=== PATIENT | female | born 1990 | race Caucasian/White ===

== ENCOUNTER 2020-05-14 12:41 | Emergency (ER) | payer OTHER ==
--- NOTE | 2020-05-14 13:38 | ED ---
Recheck HPI - General Chief Complaint: Recheck/Abnormal Lab/Rx Stated Complaint: Covid test Time Seen by Provider: 05/14/20 13:09 Source: patient, RN notes reviewed Mode of arrival: ambulatory Limitations: no limitations - History of Present Illness Initial Comments: 29-year-old female presents to the emergency Department requesting Covid testing. Patient was notified today by a source that they were possibly exposed to covid One week ago. They have no complaint of cough, fever, chills, runny nose, sore throat, loss of smell, nausea, vomiting. Patient states that she is asymptomatic. - Related Data Home Medications Medication Instructions Recorded Confirmed Acetaminophen [Tylenol] 325 mg PO Q4-6H PRN 07/14/16 07/15/16 Previous Rx's Medication Instructions Recorded Acetaminophen-Codeine 300-30mg 1 tab PO Q4H PRN #30 tablet 07/15/16 [Tylenol #3] Ibuprofen [Motrin] 600 mg PO Q6HR PRN #30 tab 07/15/16 Allergies Allergy/AdvReac Type Severity Reaction Status Date / Time Penicillins Allergy Unknown Verified 05/14/20 12:56 Review of Systems ROS Statement: Those systems with pertinent positive or pertinent negative responses have been documented in the HPI. ROS Other: All systems not noted in ROS Statement are negative. Past Medical History Past Medical History: No Reported History History of Any Multi-Drug Resistant Organisms: None Reported Past Surgical History: No Surgical Hx Reported Additional Past Surgical History / Comment(s): wisdom teeth 2010 Past Anesthesia/Blood Transfusion Reactions: No Reported Reaction Past Psychological History: No Psychological Hx Reported Smoking Status: Current every day smoker Past Alcohol Use History: None Reported Past Drug Use History: Marijuana - Past Family History Mother Family Medical History: Hypertension Father Family Medical History: Diabetes Mellitus General Exam Limitations: no limitations General appearance: alert, in no apparent distress Head exam: Present: atraumatic, normocephalic, normal inspection Eye exam: Present: normal appearance, PERRL, EOMI. Absent: scleral icterus, conjunctival injection, periorbital swelling ENT exam: Present: normal exam, normal oropharynx, mucous membranes moist, TM's normal bilaterally, normal external ear exam Neck exam: Present: normal inspection, full ROM. Absent: tenderness, meningismus, lymphadenopathy Respiratory exam: Present: normal lung sounds bilaterally. Absent: respiratory distress, wheezes, rales, rhonchi, stridor Cardiovascular Exam: Present: regular rate, normal rhythm, normal heart sounds. Absent: systolic murmur, diastolic murmur, rubs, gallop, clicks Course Vital Signs 05/14/20 12:49 Temperature 99.0 F Pulse Rate 86 Respiratory 16 Rate Blood Pressure 134/85 O2 Sat by Pulse 99 Oximetry Medical Decision Making - Medical Decision Making 21-year-old presented for cold visit testing test was performed pending results vitals are stable asymptomatic patient. Disposition Clinical Impression: Encounter for laboratory testing for COVID-19 virus Disposition: HOME SELF-CARE Condition: Stable Additional Instructions: Please return to the Emergency Department if symptoms worsen or any other concerns. Is patient prescribed a controlled substance at d/c from ED?: No Referrals: None,Stated [Primary Care Provider] - 1-2 days Time of Disposition: 13:38
[2020-05-16 09:26] VITALS: BP 134/85; PULSE 86; RESP 16; TEMP 99
== END 2020-05-14 13:55 | disposition home or self-care (01) ==
LOC: EC 12:41
DX: Z03.818 Encounter for observation for suspected exposure to other biological agents ruled out (principal); F17.200 Nicotine dependence, unspecified, uncomplicated; Z88.0 Allergy status to penicillin
CPT/HCPCS: 99282

== ENCOUNTER 2024-01-24 17:36 | Emergency (ER) | payer SELFPAY ==
--- NOTE | 2024-01-24 18:06 | ED ---
ENT HPI - General Chief complaint: Dental/Oral Stated complaint: R Abscess Tooth Time Seen by Provider: 01/24/24 19:48 Source: patient, RN notes reviewed Mode of arrival: ambulatory Limitations: no limitations - History of Present Illness Initial comments: Patient is a 33-year-old female presented to ER with a chief complaint of dental infection. Patient states she has followed up with a dentist outpatient and her next appointment is February 12 for second opinion. She states for the past couple days she has been having increased pain on her right upper jaw just superior to 2 broken teeth. She states it feels like the infection is "moving". She states she is using antibiotic mouthwash prescribed by dentist without relief. She states pain is under good control "for the most part". She states she has been "sucking" on that side for pain relief. Denies any drainage, fevers, chills, nausea, vomiting, chest pain, shortness of breath. - Related Data Previous Rx's Medication Instructions Recorded Clindamycin [Cleocin] 150 mg PO Q6H #40 capsule 01/24/24 Allergies Allergy/AdvReac Type Severity Reaction Status Date / Time Penicillins Allergy Unknown Verified 01/24/24 17:45 Review of Systems ROS Statement: Those systems with pertinent positive or pertinent negative responses have been documented in the HPI. ROS Other: All systems not noted in ROS Statement are negative. Past Medical History Past Medical History: No Reported History, Hypertension History of Any Multi-Drug Resistant Organisms: None Reported Past Surgical History: No Surgical Hx Reported, Tubal Ligation Additional Past Surgical History / Comment(s): wisdom teeth 2010 Past Anesthesia/Blood Transfusion Reactions: No Reported Reaction Past Psychological History: No Psychological Hx Reported Smoking Status: Former smoker Past Alcohol Use History: Occasional Past Drug Use History: None Reported - Past Family History Mother Family Medical History: Hypertension Father Family Medical History: Diabetes Mellitus General Exam Limitations: no limitations General appearance: alert, in no apparent distress Head exam: Present: atraumatic, normocephalic, normal inspection Eye exam: Present: normal appearance, PERRL, EOMI. Absent: scleral icterus, conjunctival injection, periorbital swelling ENT exam: Present: normal exam, mucous membranes moist, other (Dental caries noted and right upper incisors. No drainable abscess. thin white patch on upper right gum line no surrounding redness. no drainable abscess) Neck exam: Present: normal inspection. Absent: tenderness, meningismus, lymphadenopathy Respiratory exam: Present: normal lung sounds bilaterally. Absent: respiratory distress, wheezes, rales, rhonchi, stridor Cardiovascular Exam: Present: regular rate, normal rhythm, normal heart sounds. Absent: systolic murmur, diastolic murmur, rubs, gallop, clicks Neurological exam: Present: alert, oriented X3, CN II-XII intact Psychiatric exam: Present: normal affect, normal mood Skin exam: Present: warm, dry, intact, normal color. Absent: rash Course Vital Signs 01/24/24 01/24/24 17:41 18:24 Temperature 98.4 F 98.3 F Pulse Rate 74 71 Respiratory 18 18 Rate Blood Pressure 164/90 150/86 O2 Sat by Pulse 100 99 Oximetry Medical Decision Making - Medical Decision Making Was pt. sent in by a medical professional or institution (, PA, [employer] SEAMAN, urgent care, hospital, or assisted...) When possible be specific @ -No Did you speak to anyone other than the patient for history (EMS, parent, family, police, friend...)? What history was obtained from this source @ -No Did you review nursing and triage notes (agree or disagree)? Why? @ -I reviewed and agree with nursing and triage notes Were old charts reviewed (outside hosp., previous admission, EMS record, old EKG, old radiological studies, urgent care reports/EKG's, assisted records)? Report findings @ -No old charts were reviewed Differential Diagnosis (chest pain, altered mental status, abdominal pain women, abdominal pain men, vaginal bleeding, weakness, fever, dyspnea, syncope, headache, dizziness, GI bleed, back pain, seizure, CVA, palpatations, mental health, musculoskeletal)? @ -Dental abscess, tooth fracture, tooth ache, pulpitis, this list is not meant to be all-inclusive EKG interpreted by me (3pts min.). @ -None X-rays interpreted by me (1pt min.). @ -None done CT interpreted by me (1pt min.). @ -None done U/S interpreted by me (1pt. min.). @ -None done What testing was considered but not performed or refused? (CT, X-rays, U/S, labs)? Why? @ -None What meds were considered but not given or refused? Why? @ -None Did you discuss the management of the patient with other professionals (professionals i.e. , PA, [employer] SEAMAN, lab, RT, psych nurse, social media analyst, truck loader overhead crane, teacher, privacy officer, bilingual case manager)? Give summary @ -No Was smoking cessation discussed for >3mins.? @ -No Was critical care preformed (if so, how long)? @ -No Were there social determinants of health that impacted care today? How? (Homelessness, low income, unemployed, alcoholism, drug addiction, transp ortation, low edu. Level, literacy, decrease access to med. care, senior living, rehab)? @ -No Was there de-escalation of care discussed even if they declined (Discuss DNR or withdrawal of care, Hospice)? DNR status @ -No What co-morbidities impacted this encounter? (DM, HTN, Smoking, COPD, CAD, Cancer, CVA, ARF, Chemo, Hep., AIDS, mental health diagnosis, sleep apnea, morbid obesity)? @ -None Was patient admitted / discharged? Hospital course, mention meds given and route, prescriptions, significant lab abnormalities, going to OR and other pertinent info. @ -Discharge. Patient is a 33-year-old female presenting to the ER with a chief complaint of dental abscess. History and physical exam completed. Vitals stable. Patient no signs of acute distress and nontoxic-appearing. 2 dental caries present on upper right incisors. No surrounding erythema or purulent drainage present. Thin white patch superior to infected teeth. It is believed this may be the start of infection. Patient started on clindamycin. Advise close follow-up with dentist. Patient states she has an appointment on 02/13/24. Advised her to attend that appointment. Patient refused analgesic medication. Advised to continue using mouthwash. Return parameters discussed. Patient discharged stable condition with follow-up to dentist/PCP. Patient expressed understanding and agreement with care plan. Undiagnosed new problem with uncertain prognosis? @ -No Drug Therapy requiring intensive monitoring for toxicity (Heparin, Nitro, Insulin, Cardizem)? @ -No Were any procedures done? @ -No Diagnosis/symptom? @ -Dental infection/dental caries Acute, or Chronic, or Acute on Chronic? @ -Acute Uncomplicated (without systemic symptoms) or Complicated (systemic symptoms)? @ -Uncomplicated Side effects of treatment? @ -No Exacerbation, Progression, or Severe Exacerbation? @ -No Poses a threat to life or bodily function? How? (Chest pain, [place], [place], pneumonia, PE, COPD, DKA, ARF, appy, cholecystitis, CVA, Diverticulitis, Homicidal, Suicidal, threat to staff... and all critical care pts) @ -No Disposition Clinical Impression: Dental caries, Dental infection Disposition: HOME SELF-CARE Condition: Stable Instructions (If sedation given, give patient instructions): Toothache (ED) Additional Instructions: Complete full course of antibiotics. Follow-up with dentist as scheduled on February 13, 2024. Return to the ER for any new or worsening concerns. Prescriptions: Clindamycin [Cleocin] 150 mg PO Q6H #40 capsule Is patient prescribed a controlled substance at d/c from ED?: No Referrals: Lynda Nguyen MD [Primary Care Provider] - 1-2 days Lalit Reddy DDS [STAFF PHYSICIAN] - 1-2 days Adelina Howard DDS [STAFF PHYSICIAN] - 1-2 days Time of Disposition: 18:06
[2024-01-24 18:14] VITALS: RESP 18
[2024-01-24 18:45] VITALS: BP 150/86; PULSE 71; TEMP 98.3
== END 2024-01-24 20:00 | disposition home or self-care (01) ==
LOC: EC 17:36
DX: K04.7 Periapical abscess without sinus (principal); K02.9 Dental caries, unspecified; Z87.891 Personal history of nicotine dependence
CPT/HCPCS: 99282